=== PATIENT | male | born 1960 | race Asian ===

== ENCOUNTER 2019-09-18 12:50 | Emergency (ER) | payer OTHER ==
[~2019-09-18] VITALS: Ht 190.5 cm; Wt 72.6 kg
[2019-09-18 12:50] VITALS: TEMP 97.7
[2019-09-18 14:27] LABS: PLATELET COUNT 399 K/uL (142-355)
[2019-09-18 14:28] LABS: POTASSIUM 4.4 mmol/L (3.6-5.2); SODIUM 129 mmol/L (136-145)
[2019-09-18 17:00] VITALS: BP 152/74
== END 2019-09-18 17:02 | disposition home or self-care (01) ==
LOC: ED 14:11
PROVIDERS: Emergency Medicine
DX: E87.1 Hypo-osmolality and hyponatremia (principal); E86.0 Dehydration; E11.9 Type 2 diabetes mellitus without complications; R00.0 Tachycardia, unspecified
CPT/HCPCS: 80048; 80053; 81000; 82550; 82962; 84484; 85027; 87502; 93005; 96360; 96361; 99284

== ENCOUNTER 2021-12-30 16:20 | Inpatient (IN) | payer OTHER ==
[2021-12-30] VITALS (8 sets, daily range): BP systolic 95–131; BP diastolic 58–94; TEMP 97.4–98.2; Ht 190.5 cm; Wt 55.4 kg
[~2021-12-30] VITALS: Ht 190.5 cm; Wt 55.4 kg
[2021-12-30 16:48] LABS: PLATELET COUNT 251 K/uL (142-355)
[2021-12-30 17:09] LABS: POTASSIUM 6.1 mmol/L (3.6-5.2)
[2021-12-31 04:00] VITALS: BP 102/61; TEMP 97.8
[2021-12-31 05:04] LABS: PLATELET COUNT 214 K/uL (142-355)
[2021-12-31 05:22] LABS: POTASSIUM 5.5 mmol/L (3.6-5.2)
[2021-12-31 08:00] VITALS: BP 134/73; TEMP 97.7
[2021-12-31 12:00] VITALS: BP 111/63; TEMP 97.8
[2021-12-31 16:00] VITALS: BP 145/85; TEMP 97.8
[2021-12-31 20:00] VITALS: BP 152/58; TEMP 97.7
[2022-01-01] VITALS: BP 157/77; TEMP 97.9
[2022-01-01 04:00] VITALS: BP 130/68; TEMP 98.5
[2022-01-01 05:47] LABS: PLATELET COUNT 240 K/uL (142-355)
[2022-01-01 06:13] LABS: POTASSIUM 5.4 mmol/L (3.6-5.2)
[2022-01-01 08:00] VITALS: BP 150/86; TEMP 98.4
[2022-01-01 12:00] VITALS: BP 169/89; TEMP 97.7
[2022-01-01 16:00] VITALS: BP 163/89; TEMP 98.2
[2022-01-01 20:00] VITALS: BP 147/87; TEMP 97.9
[2022-01-02 00:13] VITALS: BP 149/86; TEMP 98.2
[2022-01-02 05:28] LABS: PLATELET COUNT 242 K/uL (142-355)
[2022-01-02 05:47] LABS: POTASSIUM 5.3 mmol/L (3.6-5.2)
[2022-01-02 07:55] VITALS: BP 159/94; TEMP 98.2
[2022-01-02 11:45] VITALS: BP 163/96; TEMP 98.6
[2022-01-02 15:54] VITALS: BP 162/95; TEMP 98.4
[2022-01-02 20:00] VITALS: BP 133/85; TEMP 99.5
[2022-01-03] VITALS: BP 159/98; TEMP 98.6
[2022-01-03 04:00] VITALS: BP 148/94; TEMP 98.6
[2022-01-03] MEDS ORDERED: PANTOPRAZOLE 40MG TA PO (08:26)
[2022-01-03 09:20] LABS: PLATELET COUNT 253 K/uL (142-355)
[2022-01-03 09:28] LABS: POTASSIUM 5.1 mmol/L (3.6-5.2)
[2022-01-03 12:00] VITALS: BP 156/92; TEMP 98.2
[2022-01-03 15:39] VITALS: BP 154/84; TEMP 98.4
[2022-01-03 20:00] VITALS: BP 164/96; TEMP 98.9
[2022-01-03 23:57] VITALS: BP 146/82; TEMP 99.2
[2022-01-04 08:00] VITALS: BP 146/78; TEMP 98.9
[2022-01-04 12:00] VITALS: BP 133/84; TEMP 98.6
== END 2022-01-04 13:15 | disposition home or self-care (01) | DRG 683 ==
LOC: ED 16:32 → MED/SURG 18:00
PROVIDERS: Hospitalist; ADMIT Internal Medicine; ATTEND Internal Medicine
DX: N17.8 Other acute kidney failure (principal); K92.0 Hematemesis; E10.65 Type 1 diabetes mellitus with hyperglycemia; E10.40 Type 1 diabetes mellitus with diabetic neuropathy, unspecified; I73.89 Other specified peripheral vascular diseases; F41.8 Other specified anxiety disorders; E10.22 Type 1 diabetes mellitus with diabetic chronic kidney disease; N18.2 Chronic kidney disease, stage 2 (mild); D64.89 Other specified anemias
CPT/HCPCS: 36415; 80053; 80307; 80320; 81000; 81002; 82271; 82550; 83690; 83880; 83986; 84484; 85027; 85610; 85730; 86850; 86900; 86901; 87635; 93005; 94760; 96360; 96365; 96375; 99284; J0696; J1650; J1815; J2060; J2405; J3490; J7120; U0003

== ENCOUNTER 2022-08-04 08:58 | Observation (INO) | payer OTHER ==
[~2022-08-04] VITALS: Ht 190.5 cm; Wt 63.5 kg
[~2022-08-04 08:58] MED LIST: PANTOPRAZOLE 40MG TA PO
[2022-08-04 09:03] VITALS: BP 179/85; TEMP 98.7
[2022-08-04 10:06] LABS: PLATELET COUNT 468 K/uL (142-355)
[2022-08-04 10:12] LABS: POTASSIUM 5.8 mmol/L (3.6-5.2)
[2022-08-04 13:26] VITALS: BP 169/80; TEMP 98.5; Ht 190.5 cm; Wt 63.5 kg
[2022-08-04] MEDS ORDERED: LIPITOR20 MG PO (15:01)
[2022-08-04] MEDS ORDERED: CYCL10TA35 PO (15:01)
[2022-08-04] MEDS ORDERED: VENL25TA2 PO (15:01)
[2022-08-04] MEDS ORDERED: LANTUS100 UNIT/M SC (15:02)
[2022-08-04] MEDS ORDERED: LISI20TA11 PO (15:02)
[2022-08-04] MEDS ORDERED: LYRICA150 MG PO (15:17)
[2022-08-04] MEDS ORDERED: HYDR10TA47 PO (15:18)
[2022-08-04 17:03] VITALS: BP 147/82; TEMP 98.6
[2022-08-04 17:44] LABS: POTASSIUM 5.2 mmol/L (3.6-5.2)
== END 2022-08-04 18:51 | disposition home or self-care (01) ==
LOC: ED 08:58 → MED/SURG 12:03
PROVIDERS: Family Medicine; ADMIT Internal Medicine; ATTEND Internal Medicine
DX: S91.331A Puncture wound without foreign body, right foot, initial encounter (principal); E87.5 Hyperkalemia; I10 Essential (primary) hypertension; I73.89 Other specified peripheral vascular diseases; Z89.612 Acquired absence of left leg above knee; F32.A Depression, unspecified; E10.22 Type 1 diabetes mellitus with diabetic chronic kidney disease; E10.65 Type 1 diabetes mellitus with hyperglycemia; I12.9 Hypertensive chronic kidney disease with stage 1 through stage 4 chronic kidney disease, or unspecified chronic kidney disease; N18.31 Chronic kidney disease, stage 3a; W22.8XXA Striking against or struck by other objects, initial encounter; Y92.89 Other specified places as the place of occurrence of the external cause
CPT/HCPCS: 80048; 80053; 80307; 81002; 85027; 87635; 99220; 99283; G0378; J0360; U0003